=== PATIENT | male | born 1990 | race Hispanic/Latino ===

== ENCOUNTER 2024-07-02 13:43 | Emergency (ER) | payer SELFPAY ==
[~2024-07-02] VITALS: Ht 160 cm; Wt 64.0 kg
[2024-07-02 13:46] VITALS: PULSE 75; RESP 18
[2024-07-02] MEDS: CLINDAMYCIN IVPB 600MG/50ML 50 ML IV SCH (16:53)
[2024-07-02] MEDS: ONDANSETRON 4MG INJ IVP ONE (16:54)
[2024-07-02] MEDS: MORPHINE 2 MG SYG IVP ONE (16:54)
[2024-07-02] MEDS: KETOROLAC 15MG/ML VIAL (15MG/ML) IV ONE (16:54)
[2024-07-02] MEDS: dexaMETHasone SOD PHOSPHATE 4 MG/ML 1ML VIAL IVP ONE (16:55)
[2024-07-02] MEDS ORDERED: MAGIC MM (17:44)
[2024-07-02] MEDS ORDERED: CLIN-141 PO (17:44)
[2024-07-02] MEDS ORDERED: KETO10TA2 PO (17:44)
== END 2024-07-02 18:15 | disposition home or self-care (01) ==
LOC: EDH 13:43
DX: K04.7 Periapical abscess without sinus (principal); B34.9 Viral infection, unspecified; Z20.822 Contact with and (suspected) exposure to COVID-19; Z79.899 Other long term (current) drug therapy; Z90.49 Acquired absence of other specified parts of digestive tract; Z98.890 Other specified postprocedural states
CPT/HCPCS: 99284; 96365; 96375; 87880; J1100; J2270; J2405; J1885; J3490